=== PATIENT | female | born 2005 | race Caucasian/White ===

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

== ENCOUNTER → 2023-05-16 | Outpatient (CLI) | payer OTHER | LOC: M WUC 12:14 | PROVIDERS: ATTEND Student in an Organized Health Care Education/Training Program | DX: M25.571 Pain in right ankle and joints of right foot (principal) ==

== ENCOUNTER 2024-01-26 20:18 | Inpatient (IN) | payer OTHER ==
[~2024-01-26] VITALS: Ht 162.6 cm; Wt 113.0 kg
[2024-01-26] MEDS ORDERED: BUSP15TA47 PO (20:32)
[2024-01-26 21:05] LABS: HEMOGLOBIN 13.6 g/dl (12.0-15.5); MEAN CORPUSCULAR HEMOGLOBIN 30.2 pg (27.0-33.0); MEAN CORPUSCULAR HGB CONC 33.2 g/dl (32.0-36.5); MEAN CORPUSCULAR VOLUME 90.9 fl (80.0-96.0); PLATELET COUNT, AUTOMATED 304 10^3/uL (150-450); RED BLOOD COUNT 4.51 10^6/uL (4.00-5.40); WHITE BLOOD COUNT 8.4 10^3/uL (4.0-10.0)
[2024-01-26 21:33] LABS: AMPHETAMINES LEVEL URINE NEGATIVE (NEGATIVE); BARBITURATES URINE NEGATIVE (NEGATIVE); BENZODIAZEPINES URINE NEGATIVE (NEGATIVE)
[2024-01-26 21:34] LABS: COCAINE METABOLITE URINE NEGATIVE (NEGATIVE); METHADONE URINE NEGATIVE (NEGATIVE); OPIATES URINE NEGATIVE (NEGATIVE); PHENCYCLIDINE URINE NEGATIVE (NEGATIVE)
[2024-01-26 21:36] LABS: CANNABINOIDS URINE POSITIVE (NEGATIVE)
[2024-01-26 21:37] LABS: ETHYL ALCOHOL (ETHANOL) < 0.003 % (0.000-0.010)
[2024-01-26] MEDS ORDERED: LEXA1TAB2 PO (21:37)
[2024-01-26] MEDS ORDERED: BUSP1TAB PO (21:37)
[2024-01-26 21:38] LABS: ALBUMIN 3.1 G/DL (3.2-5.2); ALKALINE PHOSPHATASE 100 U/L (35-104); ALT/SGPT 21 U/L (7.0-40); AST/SGOT 25 U/L (<34); BILIRUBIN,DIRECT < 0.1 MG/DL (<0.4); BILIRUBIN,TOTAL 0.2 MG/DL (0.3-1.2); BLOOD UREA NITROGEN 13 MG/DL (9-23); CALCIUM LEVEL 10.1 MG/DL (8.5-10.1); CARBON DIOXIDE LEVEL 24 MMOL/L (20-31); CHLORIDE LEVEL 105 MMOL/L (98-107); CREATININE FOR GFR 0.61 MG/DL (0.55-1.30); GLUCOSE, FASTING 95 MG/DL (60-100); POTASSIUM SERUM 4.5 MMOL/L (3.5-5.1); SALICYLATE LEVEL < 3.0 MG/DL (<30); SODIUM LEVEL 139 MMOL/L (136-145); TOTAL PROTEIN 7.3 G/DL (5.7-8.2)
[2024-01-26 21:40] LABS: THYROID STIMULATING HORMONE 4.395 uIU/ML (0.48-4.17)
[2024-01-26] MEDS ORDERED: HOME MED LIST COMPLETE! XX SCH (21:40)
[2024-01-26 21:41] LABS: HCG, SERUM QUALITATIVE NEGATIVE (NEGATIVE)
[2024-01-26] MEDS: ESCITALOPRAM OXALATE 10 MG TAB (LEXAPRO) PO ONE (22:59)
[2024-01-26] MEDS: busPIRone 5 MG TAB PO ONE (22:59)
[2024-01-26] MEDS ORDERED: MOM 30ML SUSPENSION UDC PO PRN (23:45)
[2024-01-26] MEDS ORDERED: IBUPROFEN 400MG TAB PO PRN (23:45)
[2024-01-26] MEDS ORDERED: ACETAMINOPHEN 325 MG TAB PO PRN (23:45)
[2024-01-26] MEDS ORDERED: MAALOX 30 ML SUSP *UDC PO PRN (23:45)
[2024-01-27 02:04] VITALS: BP 155/98; TEMP 98.5; O2SAT 97
[2024-01-27 06:23] VITALS: BP 150/80; TEMP 98.8; O2SAT 98
[2024-01-27] MEDS: NICOTINE 14 MG/24 HR TRANSDERMAL TD SCH (09:00)
[2024-01-27] MEDS: busPIRone 5 MG TAB PO SCH (09:16)
[2024-01-27] MEDS: ARIPiprazole 2 MG TAB PO SCH (10:53)
[2024-01-27 16:07] VITALS: BP 140/87; TEMP 98.8; O2SAT 95
[2024-01-27] MEDS: ESCITALOPRAM OXALATE 10 MG TAB (LEXAPRO) PO SCH (21:07)
[2024-01-28 06:24] VITALS: BP 150/90; TEMP 97.8; O2SAT 98
[2024-01-28 15:36] VITALS: BP 142/88; TEMP 99; O2SAT 98
[2024-01-28] MEDS: traZODone 50 MG TAB PO PRN (20:37)
[2024-01-28] MEDS: diphenhydrAMINE 25MG CAP PO PRN (21:09)
[2024-01-29 06:36] VITALS: BP 140/94; TEMP 98.8; O2SAT 97
[2024-01-29] MEDS: PILL CUTTER 1 EACH XX PRN (09:00)
[2024-01-29 16:29] VITALS: BP 142/108; TEMP 97.7; O2SAT 97
[2024-01-30 06:38] VITALS: BP 150/90; TEMP 97.5; O2SAT 98
[2024-01-30] MEDS ORDERED: ABIL1TAB13 PO (08:52)
== END 2024-01-30 11:41 | disposition home or self-care (01) | DRG 881 ==
LOC: M ED 20:18 → M ED INP 23:43 → M PSY 01-27 01:31
PROVIDERS: ADMIT Psychiatry & Neurology Neurology; ATTEND Psychiatry & Neurology Psychiatry
DX: F32.A Depression, unspecified (principal); R45.851 Suicidal ideations; Z81.8 Family history of other mental and behavioral disorders; Z91.148 Patient's other noncompliance with medication regimen for other reason; F32.9 Major depressive disorder, single episode, unspecified; Z88.0 Allergy status to penicillin; Z79.899 Other long term (current) drug therapy